=== PATIENT | male | born 1960 | race Caucasian/White ===

== ENCOUNTER → 2017-10-30 | Outpatient (CLI) | payer BC, OTHER ==
[~2017-10-30] MED LIST: ASPI325T39 PO; CARV6.25 PO; FLUT0.15 INTNAS; FRS/40 PO; GABA-112 PO; LOSA1TAB PO; POTA8CAP6 PO; ROSU40TA PO; TRAM-10 PO
--- NOTE | 2017-10-31 06:12 | SPLIT NIGHT TECHNICIAN REPORT ---
[facility] Split Night Polysomnogram - [employer] Report Study date: 10/30/2017 Referring Physician: Dr. Lashae oCndon M.D. Name: REMA NIEVES [employer] Officer: CURRY Vogel. Date of : 1960 Height: 57 years, Height 5' 11" Sex: Male Weight: 361 lbs Age: 57 Neck Circum:18.5in. BMI: Medications: 50.34 ASA 81mg, Coreg, Zyrtec 10mg, Flonase 50mcg/act, Lasix 40mg, Neurontin 100mg, Cozaar 50mg, Nicotine gum, Crestor 40mg, Zoloft 50mg, Tramadol 100mg Patient History Study started on room air with ETCO2 monitoring in room #8. 57 yr old male here tonight for a possible split psg. He has a history of EDS, CHF and CAD. He snores and has witnessed apnea He was placed on pap during his last hospital stay but could not tolerate it. His ESS=12/24. Neck circ=18.5inches. Parameters Monitored NPSG: E1-M2, E2-M1, Fp1-M2, Fp2-M1, F3-M2, F4-M2, F4-M1, C3-M2, C4-M2, C4-M1, O1-M2, O2-M2, O2-M1, T3-M2, T4-M1, P3-M2, P4-M1, CHIN1, CHIN2, HR, EKG, Legs, PFLOW, SNOR, FLOW, CFLOW, Tidal Volume, THOR, ABDO, SpO2, PLTH, CPRESS, ETCO2 Wave, ETCO2, pH SLEEP SUMMARY DATA DIAGNOSTIC TREATMENT Lights Out: 10:03:34 PM 12:36:34 AM Lights On: 12:25:04 AM 5:33:34 AM Total Recording Time (TRT): 142.0 min. 297.0 min. Total Sleep Time (TST): 122.5 min. 289.5 min. NREM Time: 122.5 min. 162.5 min. REM Time: 0.0 min. 127.0 min. Sleep Period Time (SPT): 133.5 min. 290.5 min. Sleep Efficiency (SE): 87 % 97 % Sleep Latency: 8.0 min. 6.5 min. Arousal Index: 22.0 2.5 PAP Treatment Levels: 5, 7, 9, 11 * Optimal Pressure(s) SLEEP STAGING DATA DIAGNOSTIC TREATMENT Duration (min) TST % Duration (min) TST % Stage Wake: 19.0 min. -- 7.5 min. -- WASO: 11.0 min. -- 1.0 min. -- NREM: 122.5 min. 100 % 162.5 min. 56 % Stage N1: 9.5 min. 8 % 10.5 min. 4 % Stage N2: 113.0 min. 92 % 79.0 min. 27 % Stage N3: 0.0 min. 0 % 73.0 min. 25 % REM: 0.0 min. 0 % 127.0 min. 44 % POSITIONAL DATA Event Count Index Event Count Index Supine: 196 96 34 7.0 Supine NREM: 196 96.0 23 8.5 Supine REM: N/A N/A 11 5 Non-Supine: N/A N/A N/A N/A Non-Supine NREM: N/A N/A N/A N/A Non-Supine REM: N/A N/A N/A N/A AROUSAL SUMMARY DATA: Event Count Index Event Count Index Apnea Arousals: 27 56.8 0 0.4 Hypopnea Arousals: 13 6.4 8 1.7 Snore Arousals: 1 0.5 0 0.0 PLM Arousals: 2 1.0 1 0.2 Non-Specific Arousals: 3 1.5 3 0.6 Total Arousals: 45 22.0 12 2.5 MYOCLONUS (PLM) Event Count Index Event Count Index PLM: 80 39.2 8 1.7 PLM AROUSAL: 2 1.0 1 0.2 PLM W/O AROUSAL 80 39.2 7 1.5 PLM W/RESP EVENT 33 0.0 0 0.0 MYOCLONUS (PLM) Event Count Index Event Count Index LM: 2 81.8 41 8.5 LM AROUSAL: 2 1.0 0 0.0 LM W/O AROUSAL LM W/RESP EVENT LM NON SPECIFIC 98 48.0 38 7.9 HEART RATE DATA DIAGNOSTIC TREATMENT Sleep (bpm): 67 58 REM (bpm): N/A 89 NREM (bpm): 86 87 Tachycardia Count: 0 0 Tachycardia Duration: 0.00 0 Bradycardia Count: 0 0 Bradycardia Duration: 0.00 0 DIAGNOSTIC PORTION TREATMENT PORTION RESPIRATORY DATA Event Count Index Event Count Index AHI: -- 96.0 -- 7.0 RDI: -- 96.0 -- 7 Obstructive Apnea: 115 56.3 2 0.4 Central Apnea: 0 0.0 0 0.0 Mixed Apnea: 1 0.5 0 0.0 Hypopnea: 80 39.2 32 6.6 RERA: 0 0.0 0 0.0 Total Apneas: 116 56.8 2 0.4 RESPIRATORY DATA REM NREM SLEEP REM NREM SLEEP Supine Position: Obstructive Apneas: N/A 115 115 1 1 2 Central Apneas: N/A 0 0 0 0 0 Mixed Apneas: N/A 1 1 0 0 0 Hypopneas: N/A 80 80 10 22 32 RERA N/A 0 0 0 0 0 Total Supine Events: N/A 196 196 11 23 34 Supine AHI: N/A 96.0 96 5 8.5 7.0 Supine RDI: N/A 96.0 96.0 5.2 8.5 7.0 REM NREM SLEEP REM NREM SLEEP Non-Supine Position: Obstructive Apneas: N/A N/A N/A N/A N/A N/A Central Apneas: N/A N/A N/A N/A N/A N/A Mixed Apneas: N/A N/A N/A N/A N/A N/A Hypopneas: N/A N/A N/A N/A N/A N/A RERA N/A N/A N/A N/A N/A N/A Total Supine Events: N/A N/A N/A N/A N/A N/A Supine AHI: N/A N/A N/A N/A N/A N/A Supine RDI: N/A N/A N/A N/A N/A N/A OXYGEN DESTAURATION DATA: Event Count Index Event Count Index REM Desaturations: N/A N/A 17 8.0 NREM Desaturations: 197 96.5 25 9.2 SNORE DATA DIAGNOSTIC TREATMENT Snore Time: 2.7 12:43:04 AM Snore TST%: 2 1 Snore Arousal Count: 1 0 Snore Arousal Index: 0.5 0.0 Desaturation Event Summary: Minimum %SpO2 Event Count Mean/Min/Max Duration(sec.) Desaturation Index % Time In Bed > 90 171 24.7 / 6.3 / 60.0 127.7 18.5 86 - 90 177 21.6 / 4.0 / 53.0 38.9 62.9 81 - 85 7 12.4 / 7.5 / 17.0 6.4 15.2 76 - 80 4 20.1 / 13.0 / 26.0 17.5 3.2 71 - 75 0 N/A 0.0 0.2 66 - 70 0 N/A 0.0 0.0 61 - 65 0 N/A 0.0 0.0 56 - 60 0 N/A 0.0 0.0 51 - 55 0 N/A 0.0 0.0 < 50 0 N/A 0.0 0.0 OXYGEN SATURATION DATA DIAGNOSTIC TREATMENT SpO2 Mean Sleep: 86 % 88 % SpO2 Mean REM: N/A % 89 % SpO2 Mean NREM: 86 % 87 % SpO2 Minimum Sleep: 76 % 73 % SpO2 Minimum REM: N/A % 73 % SpO2 Minimum NREM: 76 % 80 % Time Below 90% (TST): 90.7 203.8 Time Below 88% (TST): 71.5 136.7 Total REM NREM Awake <50% 0.0 min. 0.0 min. 0.0 min. 0.0 min. 51 - 60% 0.0 min. 0.0 min. 0.0 min. 0.0 min. 61 - 70% 0.0 min. 0.0 min. 0.0 min. 0.0 min. 71 - 80% 14.5 min. 5.8 min. 8.6 min. 0.1 min. 81 - 90% 338.9 min. 70.7 min. 245.3 min. 22.9 min. 91 - 100% 80.4 min. 48.3 min. 29.3 min. 2.8 min. Average 88 89 87 88 Minimum SpO2 73 73 76 77 Desaturation Event Index 34.1 8.0 46.7 22.6 # Desat. Events below 89% 246 16 221 9 Time(%) with Saturation below 89% 62.1 9.6 49.3 3.3 Time(min.) with Saturation below 89% 269.6 41.6 213.8 14.1 Recording [employer] Comments: Mr. Nieves slept in the supine position with the head of his bed elevated. Cardiac arrhythmia noted. PLM's were not noted. No bruxism noted. Snoring was noted and scored as a 3 on a scale of 1 through 5. (0=no snoring, 5=snoring loud enough to be heard through a closed door or down the [address]ames [address]) At 12:36am he had met specific Split-Night criteria during the diagnostic portion of this study. CPAP was initiated at +5 CMH2O and up-titrated to an optimal level of +11 CMH2O, which nearly eliminated all respiratory events and snoring. One liter of oxygen was added at 3:50 am. His oxygen saturations were below 89% for 111.7 minutes on a setting of 11 cwp with an AHI of 2.0 for 120.2 minutes. Oxygen had to be increased to three liters per minute. A Mirage FX nasal mask by [employer] with a standard cushion was used during titration. He did not use the restroom during the night. He stated that he slept better than usual. The final report will be interpreted and signed by a sleep physician. The completed physician report will then be placed in the patient medical record. Therapy Event: Therapy (cm H20) 0 5 7 9 11 Total Time at Pressure (min.) 141.5 17.7 10.5 42.6 226.2 TST at Pressure (min.) 122.5 11.2 10.5 42.6 225.2 # Periods 1 1 1 1 1 Sleep Onset (min.) 8.0 6.5 0.0 0.0 0.0 REM Onset (min.) N/A N/A N/A 33.3 0.0 Sleep Efficiency % 86 63 100 100 99 Wakefulness (%) 13.4 36.7 0.0 0.0 0.4 Wakefulness (min.) 19.0 6.5 0.0 0.0 1.0 NREM 1 (%) 6.7 9.7 26.6 1.2 2.4 NREM 1 (min.) 9.5 1.7 2.8 0.5 5.5 NREM 2 (%) 79.9 53.6 73.4 27.8 22.1 NREM 2 (min.) 113.0 9.5 7.7 11.8 50.0 NREM 3 (%) 0.0 0.0 0.0 49.3 23.0 NREM 3 (min.) 0.0 0.0 0.0 21.0 52.0 REM (%) 0.0 0.0 0.0 21.7 52.0 REM (min.) 0.0 0.0 0.0 9.3 117.7 # Arousals 45 3 4 1 4 Arousal Index 22.0 16.1 22.9 1.4 1.1 # Snore 151 54 9 2 23 Snore Index 74.0 289.0 51.6 2.8 6.1 AHI 96.0 32.1 63.0 12.7 2.1 AHI Supine 96.0 32.1 63.0 12.7 2.1 AHI Non-Supine N/A N/A N/A N/A N/A NREM AHI 96.0 32.1 63.0 7.2 1.1 REM AHI N/A N/A N/A 32.4 3.1 RDI 96.0 32.1 63.0 12.7 2.1 # Obstructive 115 0 0 1 1 # Central Ap 0 0 0 0 0 # Mixed 1 0 0 0 0 # Hypopneas 80 6 11 8 7 RERAS 0 0 0 0 0 Total Respiratory Events 196 6 11 9 8 Time Below SpO2 89.00% (min.) 81.7 9.1 6.1 31.1 127.5 Mean NREM SpO2 (%) 86 87 88 88 87 Mean REM SpO2 (%) N/A N/A N/A 81 89 Mean Sleep SpO2 (%) 86 87 88 86 88 Min NREM SpO2 (%) 76 80 80 80 81 Min REM SpO2 (%) N/A N/A N/A 73 80 Position Supine (min.) 122.5 11.2 10.5 42.6 225.2 Position Non-supine (min.) 0.0 0.0 0.0 0.0 0.0 LM Index Sleep 121.0 32.1 45.9 7.0 8.0 LM Index NREM 121.0 32.1 45.9 5.4 0.6 LM Index REM N/A N/A N/A 13.0 14.8 Mean Heart Rate (bpm) 67 64 63 61 57 Min Heart Rate (bpm) 49 57 55 50 45
== END | disposition home or self-care (01) ==
LOC: C.NEUR 21:00
PROVIDERS: ATTEND Internal Medicine
DX: G47.33 Obstructive sleep apnea (adult) (pediatric) (principal)

== ENCOUNTER 2020-05-04 10:03 | Inpatient (IN) ==
[2020-05-04] MEDS ORDERED: MoRPHine SULFATE 4 MG/ML 1 ML CARP\\VIAL IV STA (11:42)
[2020-05-04] MEDS ORDERED: ONDANSETRON INJ 2 MG/ML 2 ML VIAL IV STA (11:42)
[2020-05-04] MEDS ORDERED: diphenhydrAMINE 50 MG/ML VIAL IV STA (11:42)
[2020-05-04] MEDS ORDERED: SODIUM CHLORIDE 0.9% 1000ML 1,000 ML IV STA (11:42)
[2020-05-04] MEDS ORDERED: DEXAMETHASONE SOD INJ 10 MG/ML VIAL IV ONE (12:15)
[2020-05-04 12:25] LABS: Basophils # (auto) 0.03 K/uL (0-0.2); Basophils % (auto) 0.5 %; Eosinophils # (auto) 0.24 K/uL (0-0.5); Eosinophils % (auto) 3.7 %; Hematocrit (blood only) 37.6 % (42-52); Hemoglobin 12.4 g/dL (14.0-18.0); Immature Granulocytes # (auto) 0.03 K/uL (0.00-0.02); Immature Granulocytes % (auto) 0.5 %; Lymphocytes # (auto) 1.69 K/uL (1.2-3.4); Lymphocytes % (auto) 26.2 %; Mean Corpuscular Hemoglobin 28.7 pg (25-34); Monocytes % (auto) 9.3 %; Neutrophils # (auto) 3.87 K/uL (1.4-6.5); Neutrophils % (auto) 59.8 %; Platelet Count 179 K/uL (130-400); RDW Coefficient of Variation 14.3 % (11.5-14.5); Red Blood Count 4.32 M/uL (4.7-6.1); White Blood Count 6.46 K/uL (4.8-10.8)
[2020-05-04 12:42] LABS: Albumin Level 3.1 gm/dl (3.4-5.0); BUN Creatinine Ratio 15.2 (10-20); Calcium 8.4 mg/dl (8.5-10.1); Creatinine Clr Calc Pharmacy 105.3 ml/min; Est GFR (African American) 80.6; Est GFR (Non-African American) 69.5; Magnesium 2.2 mg/dl (1.8-2.4); Potassium 4.1 mmol/L (3.5-5.1)
[2020-05-04 12:48] LABS: INR 2.8 (0.9-1.1); Partial Thromboplastin Ratio 1.5; Partial Thromboplastin Time 42.4 Seconds (21.0-31.0); Prothrombin Time 27.5 Seconds (9.0-12.0)
[2020-05-04 12:57] LABS: Albumin Globulin Ratio 0.7 (0.9-2); Bilirubin,Total 0.3 mg/dl (0.2-1); C Reactive Protein 1.83 mg/dl (0-0.29); Globulin 4.6 gm/dl (2.5-4.0); Total Protein 7.7 gm/dl (6.4-8.2); Troponin I 0.125 ng/ml (0-0.045)
[2020-05-04 13:09] LABS: Anti Streptolysin O Screen <200 IU/ml IU/ml (<200 IU/ml)
--- NOTE | 2020-05-04 13:13 | XRay Report ---
XR chest 1V portable HISTORY: SEPSIS/RASH COMPARISON: Chest CT 04/26/2018. FINDINGS: The heart remains moderately enlarged. No pleural effusions. No pneumothorax. There are pos tsternotomy changes. Mild diffuse interstitial thickening which has improved. No evidence for pulmona ry edema. No new focal lung consolidations to suggest pneumonia. Old, healed right-sided rib fracture s. IMPRESSION: 1. Stable cardiomegaly. 2. No new focal lung consolidations to suggest pneumonia. ACT 112: Negative or not required by law. Electronically signed by: Oleg Miranda M.D. 05/04/2020 1:11 PM
--- NOTE | 2020-05-04 13:29 | Electrocardiogram Report ---
Test Reason : Blood Pressure : / mmHG Vent. 

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
[2020-05-04 14:31] LABS: Lyme Ab IgG w/WB Rflx Negative (Negative); Lyme Ab IgM w/WB Rflx Negative (Negative)
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
[2020-05-04] MEDS ORDERED: diphenhydrAMINE Capsule 25 MG CAP PO PRN (15:34)
[2020-05-04] MEDS ORDERED: OPTIRAY 320 125ml IV ONE (16:37)
--- NOTE | 2020-05-04 16:56 | CT Scan Report ---
CT angio chest PE protocol CT DOSE: 930.11 mGy.cm HISTORY: 59 years-old Male with PE. Acute shortness of breath TECHNIQUE: Multiple CTA images of the chest were obtained after the intravenous administration of 120 ml Optiray 320. Coronal and sagittal MIPS were obtained from the axial data set and were submitted for review. All measurements were obtained according to NASCET criteria. A dose lowering technique w as utilized adhering to the principles of ALARA. COMPARISON: Chest CT 04/26/2018 FINDINGS: CTA: Mild to moderate cardiomegaly. Myocardial thickening and calcifications are again noted involving the apical septal wall of the left ventricle suggestive of prior myocardial infarction. Prior median cyndy rnotomy and CABG. Extensive [place] coronary artery calcifications. There is no thoracic aortic aneury sm or dissection. There is patency of the imaged great vessels. The pulmonary arterial tree is opacif ied to level the segmental branches and demonstrates no filling defects to suggest thromboembolic dis ease. CT CHEST: Unremarkable thyroid. No pathologically enlarged lymph nodes. No pneumothorax, pleural effusion, over t pulmonary edema or airspace consolidation typical for pneumonia. Linear subsegmental areas of atele ctasis with pleuroparenchymal scarring again noted involving the lung bases, left greater than right. There are no suspicious pulmonary nodules or masses. Central airways are patent. No acute process of the imaged upper abdomen. There are several hepatic cysts redemonstrated measurin g up to approximately 2 cm. Soft tissues are unremarkable. Bones appear intact. Multilevel degenerati ve changes of the spine. There are no suspicious lytic or blastic osseous lesions identified. IMPRESSION: 1. No acute intrathoracic abnormality. 2. Cardiomegaly without evidence of pulmonary thromboembolic disease. 3. No adenopathy, pleural effusion or airspace consolidation typical for pneumonia. 4. Additional findings as above. ACT 112: Negative or not required by law. The above report was generated using voice recognition software. It may contain grammatical, syntax o r spelling errors. Electronically signed by: Luciano Larios M.D. 05/04/2020 4:55 PM
[2020-05-04] MEDS ORDERED: FLUTICASONE PROPIONATE NA SPR 16 GM BTL PRN (17:32)
[2020-05-04] MEDS ORDERED: ALUMINUM/MAGNESIUM SUSP 30 ML UDC PO PRN (17:32)
[2020-05-04] MEDS ORDERED: GLUCOSE 10 TABS/TUBE PO PRN (17:32)
[2020-05-04] MEDS ORDERED: CARBOHYDRATES FOR HYPOGLYCEMIA PO PRN (17:32)
[2020-05-04] MEDS ORDERED: ONDANSETRON INJ 2 MG/ML 2 ML VIAL IV PRN (17:32)
[2020-05-04] MEDS ORDERED: DEXTROSE 50% 50 ML SYRINGE IV PRN (17:32)
[2020-05-04] MEDS ORDERED: GABAPENTIN 300 MG CAP PO PRN (17:32)
[2020-05-04] MEDS ORDERED: POLYETHYLENE (MIRALAX) 17 GM PACK PO PRN (17:32)
[2020-05-04] MEDS ORDERED: GLUCAGON FOR INJ 1 MG VIAL SQ PRN (17:32)
[2020-05-04] MEDS ORDERED: traMADol HCL 50 MG TABLET PO PRN (17:32)
[2020-05-04] MEDS ORDERED: MAGNESIUM HYDROXIDE SUSP 30 ML UDC PO PRN (17:32)
[2020-05-04] MEDS ORDERED: GLUCOSE 40% GEL 15 GM TUBE PO PRN (17:32)
--- NOTE | 2020-05-04 17:35 | Ultrasound Report ---
BILATERAL LOWER EXTREMITY VENOUS DOPPLER CLINICAL HISTORY: r/o dvt COMPARISON STUDY: No previous studies for comparison. TECHNIQUE: Sonography of the deep venous system of the bilateral lower extremities was performed. Co mpression and augmentation were evaluated. FINDINGS: The bilateral common femoral, superficial femoral and popliteal veins were compressible. A ugmentation was normal. Flow was shown within the deep calf vessels. IMPRESSION: No evidence of deep venous thrombus within the bilateral lower extremities. ACT 112: Negative or not required by law. Electronically signed by: Chintan Chatterjee M.D. 05/04/2020 5:34 PM
[2020-05-04] MEDS ORDERED: FUROSEMIDE 40 MG TAB PO SCH (18:00)
[2020-05-04] MEDS: LOSARTAN POTASSIUM 50 MG TAB PO SCH (18:46)
[2020-05-04] MEDS: INSULIN ASPART 100 UNITS/ML 3 ML PEN SC SCH ×2 (18:54→21:10)
[2020-05-04] MEDS: carvediloL 6.25 MG TAB PO SCH (20:55)
[2020-05-04] MEDS: SERTRALINE HCL 100 MG TABLET PO SCH (20:56)
[2020-05-04] MEDS: DOXYCYCLINE HYCLATE 100 MG CAP PO SCH (20:56)
[2020-05-05 01:30] LABS: Rapid Plasma Reagin Nonreactive (Nonreactive)
[2020-05-05 05:22] LABS: Appearance Urine Clear (Clear); Bilirubin Urine Negative (Negative); Blood Urine Negative (Negative); Color Urine Yellow; Glucose Urine UA Negative (Negative); Ketones Urine Negative (Negative); Leukocyte Esterase Urine Negative (Negative); Nitrite Urine Negative (Negative); Protein Urine Negative (Negative); Urobilinogen Urine Negative (Negative); pH Urine 7.5 (4.5-7.5)
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
[2020-05-05 07:53] LABS: Basophils # (auto) 0.01 K/uL (0-0.2); Basophils % (auto) 0.2 %; Hematocrit (blood only) 38.4 % (42-52); Hemoglobin 12.5 g/dL (14.0-18.0); Immature Granulocytes # (auto) 0.02 K/uL (0.00-0.02); Immature Granulocytes % (auto) 0.3 %; Lymphocytes # (auto) 0.76 K/uL (1.2-3.4); Lymphocytes % (auto) 11.8 %; Mean Corpuscular Hemoglobin 28.6 pg (25-34); Mean Corpuscular Hgb Conc 32.6 g/dL (32-36); Mean Corpuscular Volume 87.9 fL (80-100); Mean Platelet Volume 10.3 fL (7.4-10.4); Monocytes # (auto) 0.48 K/uL (0.11-0.59); Monocytes % (auto) 7.4 %; Neutrophils # (auto) 5.18 K/uL (1.4-6.5); Neutrophils % (auto) 80.3 %; Platelet Count 209 K/uL (130-400); RDW Coefficient of Variation 14.3 % (11.5-14.5); Red Blood Count 4.37 M/uL (4.7-6.1); White Blood Count 6.45 K/uL (4.8-10.8)
[2020-05-05 08:00] LABS: INR 2.3 (0.9-1.1); Prothrombin Time 23.5 Seconds (9.0-12.0)
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
[2020-05-05 08:24] LABS: Albumin Globulin Ratio 0.7 (0.9-2); Albumin Level 3.2 gm/dl (3.4-5.0); BUN Creatinine Ratio 17.3 (10-20); Bilirubin,Total 0.3 mg/dl (0.2-1); Calcium 8.9 mg/dl (8.5-10.1); Creatinine Clr Calc Pharmacy 120.5 ml/min; Est GFR (African American) 95.3; Est GFR (Non-African American) 82.2; Globulin 4.5 gm/dl (2.5-4.0); Magnesium 2.3 mg/dl (1.8-2.4); Potassium 4.2 mmol/L (3.5-5.1); Total Protein 7.7 gm/dl (6.4-8.2)
[2020-05-05] MEDS: ASPIRIN 81 MG ECTAB PO SCH (08:53)
[2020-05-05] MEDS: predniSONE 20 MG TAB PO SCH (08:53)
[2020-05-05] MEDS: FUROSEMIDE 80 MG TAB PO SCH (08:54)
[2020-05-05] MEDS: LOSARTAN POTASSIUM 50 MG TAB PO SCH (08:54)
[2020-05-05] MEDS: carvediloL 6.25 MG TAB PO SCH ×2 (08:54→21:39)
[2020-05-05] MEDS: INSULIN ASPART 100 UNITS/ML 3 ML PEN SC SCH ×4 (08:54→21:38)
[2020-05-05] MEDS: DOXYCYCLINE HYCLATE 100 MG CAP PO SCH ×2 (08:54→21:40)
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
[2020-05-05] MEDS: PANTOprazole 40 MG TAB PO SCH (14:41)
[2020-05-05] MEDS: SERTRALINE HCL 100 MG TABLET PO SCH (21:39)
[2020-05-06 08:15] LABS: Basophils # (auto) 0.01 K/uL (0-0.2); Basophils % (auto) 0.1 %; Eosinophils # (auto) 0.03 K/uL (0-0.5); Eosinophils % (auto) 0.4 %; Hematocrit (blood only) 38.1 % (42-52); Hemoglobin 12.4 g/dL (14.0-18.0); Immature Granulocytes # (auto) 0.04 K/uL (0.00-0.02); Immature Granulocytes % (auto) 0.6 %; Lymphocytes # (auto) 1.79 K/uL (1.2-3.4); Lymphocytes % (auto) 25.1 %; Mean Corpuscular Hemoglobin 28.5 pg (25-34); Mean Corpuscular Hgb Conc 32.5 g/dL (32-36); Mean Corpuscular Volume 87.6 fL (80-100); Mean Platelet Volume 10.1 fL (7.4-10.4); Monocytes # (auto) 0.66 K/uL (0.11-0.59); Monocytes % (auto) 9.3 %; Neutrophils # (auto) 4.59 K/uL (1.4-6.5); Neutrophils % (auto) 64.5 %; Platelet Count 203 K/uL (130-400); RDW Coefficient of Variation 14.4 % (11.5-14.5); RDW Standard Deviation 46.4 fL (36.4-46.3); Red Blood Count 4.35 M/uL (4.7-6.1); White Blood Count 7.12 K/uL (4.8-10.8)
[2020-05-06 08:30] LABS: INR 1.7 (0.9-1.1); Prothrombin Time 17.4 Seconds (9.0-12.0)
[2020-05-06] MEDS: INSULIN ASPART 100 UNITS/ML 3 ML PEN SC SCH ×4 (08:32→21:13)
[2020-05-06 08:40] LABS: Albumin Level 3.3 gm/dl (3.4-5.0); BUN Creatinine Ratio 21.3 (10-20); Calcium 8.9 mg/dl (8.5-10.1); Est GFR (African American) 91.9; Est GFR (Non-African American) 79.3; Potassium 3.6 mmol/L (3.5-5.1)
[2020-05-06] MEDS: PANTOprazole 40 MG TAB PO SCH (08:41)
[2020-05-06] MEDS: DOXYCYCLINE HYCLATE 100 MG CAP PO SCH ×2 (08:41→21:13)
[2020-05-06] MEDS: FUROSEMIDE 80 MG TAB PO SCH (08:41)
[2020-05-06] MEDS: LOSARTAN POTASSIUM 50 MG TAB PO SCH (08:41)
[2020-05-06] MEDS: carvediloL 6.25 MG TAB PO SCH ×2 (08:41→21:12)
[2020-05-06] MEDS: predniSONE 20 MG TAB PO SCH (08:41)
[2020-05-06] MEDS: ASPIRIN 81 MG ECTAB PO SCH (08:41)
[2020-05-06 08:43] LABS: Albumin Globulin Ratio 0.8 (0.9-2); Bilirubin,Total 0.3 mg/dl (0.2-1); Globulin 4.3 gm/dl (2.5-4.0); Total Protein 7.6 gm/dl (6.4-8.2)
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
--- NOTE | 2020-05-06 14:43 | Cardiology Progress Note ---
Date of Service May 06, 2020 Assessment & Plan (1) Rash: (2) Chronic HFrEF (heart failure with reduced ejection fraction): (3) LV (left ventricular) mural thrombus without [place]: Mild troponin elevation is likely related to the patient's chronic left ventricular systolic dysfunction. Apical akinesis noted on echocardiogram yesterday, unchanged compared to prior, no LV mural thrombus, but certainly has a substrate for recurrent thrombus, and in the long-term, anticoagulation with Coumadin is recommended. Given immediate concerns for lower extremity vasculitis, I think it is reasonable to hold his Coumadin in the short-term, INR 1.7 today. Patient is currently on prednisone 40 mg daily, and Protonix for GI prophylaxis. He remains on aspirin 162 mg daily. His prior to hospital dose of furosemide has been continued. His prior to hospital treatment with rosuvastatin and Zetia will be reinitiated. Work-up for vasculitis is still in process, hepatitis C serology negative. Admission and Anticipated Discharge Date Admission Date: May 04, 2020 Subjective Patient seen in follow-up. He notes the rash over his thighs, hands, and legs, is improving. He is eager for discharge. Telemetry reveals sinus bradycardia in the upper 40s to lower 50 bpm range with occasional PVCs. Physical Exam Physical Exam: Temp Pulse Resp BP Pulse Ox 36.5 C 51 L 18 156/112 H 97 05/06/20 12:19 05/06/20 12:19 05/06/20 12:19 05/06/20 12:19 05/06/20 12:19 Constitutional: WD/WN, vitals as above Respiratory: normal respiratory effort, lungs clear to auscultation Cardiovascular: Rate/Rhythm: regular rhythm Heart Sounds: no murmur Vessels: no JVD Extremities: + edema (Trace ankle edema, chronic venous stasis changes of the lower legs) Skin: Petechial rash on lower extremities, slightly less prominent than yesterday Neurologic: PERRL, EOMI, accommodation nl, no face palsy, no dysarthria Results & Data ([facility]) Vital Signs (Past 12 Hours) Vital Signs Temp Pulse Resp BP BP Pulse Ox 05/06/20 12:19 36.5 C 51 L 18 156/112 H 97 05/06/20 07:19 36.5 C 48 L 19 163/87 H 96 05/06/20 03:38 35.9 C L 67 16 145/83 H 99 Laboratory Results Cardiac Enzymes 05/05/20 05/05/20 05/06/20 Range/Units 14:39 20:32 07:54 AST 15 (15-37) U/L Troponin I 0.096 H* 0.086 H* (0-0.045) ng/ml Coagulation 05/06/20 Range/Units 07:54 PT 17.4 H (9.0-12.0) Seconds CBC 05/06/20 Range/Units 07:54 WBC 7.12 (4.8-10.8) K/uL RBC 4.35 L (4.7-6.1) M/uL Hgb 12.4 L (14.0-18.0) g/dL Hct 38.1 L (42-52) % Plt Count 203 (130-400) K/uL Neut # (Auto) 4.59 (1.4-6.5) K/uL Lymph # (Auto) 1.79 (1.2-3.4) K/uL [place] # (Auto) 0.66 H (0.11-0.59) K/uL Eos # (Auto) 0.03 (0-0.5) K/uL Baso # (Auto) 0.01 (0-0.2) K/uL Comprehensive Metabolic Panel 05/06/20 Range/Units 07:54 Sodium 141 (136-145) mmol/L Potassium 3.6 (3.5-5.1) mmol/L Chloride 109 H (98-107) mmol/L Carbon Dioxide 27 (21-32) mmol/L BUN 22 H (7-18) mg/dl Creatinine 1.04 (0.6-1.4) mg/dl Glucose 102 H (70-99) mg/dl Calcium 8.9 (8.5-10.1) mg/dl AST 15 (15-37) U/L ALT 24 (12-78) U/L Alkaline Phosphatase 64 (45-117) U/L Total Protein 7.6 (6.4-8.2) gm/dl Albumin 3.3 L (3.4-5.0) gm/dl Intake and Output 05/05/20 05/06/20 05/06/20 22:59 06:59 14:59 Intake Total 480 / 480 Output Total 550 / 1575 800 / 800 Balance -550 / -1005 -320 / -320 Intake: Oral 480 / 480 Output: Urine 550 / 1575 800 / 800 Other: Other Intake Source Sips # Unmeasured Voids 3 Weight 154.3 kg Weight Measurement Method Built in [facility]
[2020-05-06 14:47] LABS: Anti Nuclear Antibody Screen NEGATIVE (NEGATIVE); Complement C3 162 mg/dL (82-185); Rheumatoid Factor 18 IU/mL (<14)
[2020-05-06] MEDS: ACETAMINOPHEN 325 MG TAB PO PRN (15:07)
[2020-05-06] MEDS: ROSUVASTATIN CALCIUM 20 MG TAB PO SCH (15:41)
[2020-05-06] MEDS: EZETIMIBE 10 MG TABLET PO SCH (15:42)
[2020-05-06] MEDS: SERTRALINE HCL 100 MG TABLET PO SCH (21:13)
[2020-05-07] MEDS: ACETAMINOPHEN 325 MG TAB PO PRN (04:56)
[2020-05-07 08:34] LABS: Hematocrit (blood only) 39.7 % (42-52); Hemoglobin 12.9 g/dL (14.0-18.0); Mean Corpuscular Hemoglobin 28.9 pg (25-34); Mean Corpuscular Hgb Conc 32.5 g/dL (32-36); Mean Corpuscular Volume 88.8 fL (80-100); Platelet Count 206 K/uL (130-400); RDW Coefficient of Variation 14.7 % (11.5-14.5); RDW Standard Deviation 47.3 fL (36.4-46.3); Red Blood Count 4.47 M/uL (4.7-6.1); White Blood Count 7.34 K/uL (4.8-10.8)
[2020-05-07 08:58] LABS: Albumin Level 3.3 gm/dl (3.4-5.0); BUN Creatinine Ratio 22.7 (10-20); Calcium 8.8 mg/dl (8.5-10.1); Creatinine Clr Calc Pharmacy 108.3 ml/min; Est GFR (African American) 84.1; Est GFR (Non-African American) 72.5; Potassium 3.3 mmol/L (3.5-5.1)
[2020-05-07 09:01] LABS: Albumin Globulin Ratio 0.7 (0.9-2); Bilirubin,Total 0.4 mg/dl (0.2-1); Globulin 4.5 gm/dl (2.5-4.0); Total Protein 7.8 gm/dl (6.4-8.2)
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
[2020-05-07] MEDS ORDERED: POTASSIUM CHLORIDE CRTAB 20 MEQ TABCR PO ONE (09:15)
[2020-05-07] MEDS: INSULIN ASPART 100 UNITS/ML 3 ML PEN SC SCH (09:27)
[2020-05-07] MEDS: LOSARTAN POTASSIUM 50 MG TAB PO SCH (09:34)
[2020-05-07] MEDS: carvediloL 6.25 MG TAB PO SCH (09:34)
[2020-05-07] MEDS: ROSUVASTATIN CALCIUM 20 MG TAB PO SCH (09:34)
[2020-05-07] MEDS: ASPIRIN 81 MG ECTAB PO SCH (09:35)
[2020-05-07] MEDS: predniSONE 20 MG TAB PO SCH (09:35)
[2020-05-07] MEDS: FUROSEMIDE 80 MG TAB PO SCH (09:35)
[2020-05-07] MEDS: PANTOprazole 40 MG TAB PO SCH (09:35)
[2020-05-07] MEDS: EZETIMIBE 10 MG TABLET PO SCH (09:35)
[2020-05-07] MEDS: DOXYCYCLINE HYCLATE 100 MG CAP PO SCH (09:35)
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
[2020-05-10 01:51] LABS: ANCA Screen Negative (Negative); Myeloperoxidase Ab <1.0 AI (<1.0); Proteinase-3 AB <1.0 AI (<1.0)
[2020-05-12 04:04] LABS: % Cryocrit DNR; Cryoglobulin, QL Negative (Negative)
== END 2020-05-07 14:04 | disposition home or self-care (01) | DRG 607 ==
LOC: ED 10:03 → 2N 15:00 → SUATTDRO 15:00 → 2N 16:08